=== PATIENT | female | born 1955 | race Caucasian/White ===

== ENCOUNTER 2017-11-21 20:03 | Emergency (ER) | payer BC ==
[2017-11-21 21:05] LABS: Urine Blood 1+ (NEG); Urine Glucose NEGATIVE (NEG); Urine Protein NEGATIVE (NEG); Urine pH 6.5 (5.0-7.0)
[2017-11-21] MEDS ORDERED: KETOROLAC 30 MG/ML INJ ONE (21:15)
[2017-11-21] MEDS ORDERED: NA CHLORIDE 0.9% 1,000 ML ONE ×2 (21:15→22:29)
[2017-11-21 21:33] LABS: Absolute Lymphocytes (CBC) 1.5 K/uL (0.7-4.9); Absolute Monocytes 0.6 K/uL (0.1-1.3); Absolute Neutrophil 6.4 K/uL (1.8-8.0); Basophils % 0.3 % (0-1.3); Eosinophils % 0.2 % (0-4.4); Lymphocytes % 17.6 % (15.3-44.8); MCH 31.2 pg (27.0-35.0); MCV 92.2 fL (80-100); MPV 8.1 fL (7.6-11.3); Monocytes % 7.1 % (3.3-12.3); RBC Red Blood Cell Count 4.66 M/uL (3.86-4.86)
--- NOTE | 2017-11-21 21:33 | RAD REPORT ---
EXAM DESCRIPTION: CT - Stone Protocol - 11/21/2017 9:20 pm CLINICAL HISTORY: Flank pain. FLANK PAIN COMPARISON: Lumbar Spine 3 Views dated 11/05/2017 TECHNIQUE: Axial images were obtained without oral or IV contrast. Lack of contrast limits solid org an and vascular assessment. The [id number] spans the entirety of the system partially obscuring uppermost abdomen and lung bases. Coronal reformatted images were obtained and reviewed. All CT scans are performed using dose optimization technique as appropriate and may include automated exposure control or mA/KV adjustment according to patient size. FINDINGS: Linear subsegmental atelectasis is present in the right lower lobe. Imaged portions of the liver and spleen show no suspicious findings on non-contrast imaging.Cholecyst ectomy. The pancreas and adrenal glands are normal. No pathologic lymphadenopathy in the abdomen or p edy. No urinary tract stones or obstructive uropathy. 13 mm cyst is seen in the inferior right kidney with subtle rim calcification noted. No bowel obstruction, free air, free fluid or abscess. Normal appendix noted. No significant bony abnormality. IMPRESSION: No urinary tract stones or obstructive uropathy.
[2017-11-21 21:45] LABS: Bilirubin Direct 0.1 mg/dL (0-0.2); Bilirubin Total 0.2 mg/dL (0.3-1.2); Protein, Total 7.1 g/dL (6.0-8.3)
[2017-11-21 21:52] LABS: Urine Bacteria <20 /HPF (<20); Urine Culture Reflex Order NOT NEEDED; Urine Mucus LIGHT /HPF (NONE SEEN); Urine RBC <5 /HPF (NONE SEEN)
--- NOTE | 2017-11-21 22:14 | ER ---
Nurse's Notes [facility] Name: Mallorie Mojica Age: 62 yrs Sex: Female : 1955 Arrival Date: 11/21/2017 Time: 20:25 Bed 24 Private MD: Diagnosis: Low back pain Presentation: 11/21 20:28 Presenting complaint: Patient states: pt c/o right sided flank pain, right sided CVA tl3 tenderness present, no urinary complaints, pain is intermittent in nature, has had a hx of two falls within th elast two weeks. Transition of care: patient was not received from another setting of care. Onset of symptoms was November 19, 2017. Risk Assessment: Do you want to hurt yourself or someone else? Patient reports no desire to harm self or others. Initial Sepsis Screen: Does the patient meet any 2 criteria? No. Patient's initial sepsis screen is negative. Does the patient have a suspected source of infection? No. Patient's initial sepsis screen is negative. Care prior to arrival: None. 20:28 Method Of Arrival: Ambulatory tl3 20:28 Acuity: AYSHA 3 tl3 Triage Assessment: 20:33 General: Appears in no apparent distress. comfortable, well groomed, well developed, tl3 well nourished, Behavior is calm, cooperative, appropriate for age. Pain: Complains of pain in right flank Pain currently is 7 out of 10 on a pain scale. Historical: - Allergies: 20:33 No Known Allergies; tl3 - Home Meds: 20:33 Micardis 20 mg Oral tab [Active]; Crestor 5 mg oral tab [Active]; levothyroxine 25 mcg tl3 tab 1 tab once daily [Active]; metoprolol tartrate 12.5 mg Oral tab once daily [Active]; omeprazole 40 mg oral cpDR [Active]; aspirin 81 mg Oral chew [Active]; - Immunization history:: Adult Immunizations up to date. - Social history:: Smoking status: Patient/guardian denies using tobacco, never smoked. - Ebola Screening: : Patient denies travel to an Ebola-affected area in the 21 days before illness onset No symptoms or risks identified at this time. Screenin:31 Abuse screen: Denies threats or abuse. Nutritional screening: No deficits noted. mb3 Tuberculosis screening: No symptoms or risk factors identified. Fall Risk None identified. Assessment: 20:45 General: Appears distressed, uncomfortable, well groomed, Behavior is calm, mb3 cooperative, appropriate for age. Pain: Complains of pain in right mid back and right low back Pain radiates to right lower quadrant. Neuro: No deficits noted. Cardiovascular: No deficits noted. Respiratory: No deficits noted. Airway is patent Respiratory effort is even, unlabored, Respiratory pattern is regular, symmetrical, Breath sounds are clear bilaterally. GI: Abdomen is flat, Bowel sounds present X 4 quads. Abd is soft and non tender. : No signs and/or symptoms were reported regarding the genitourinary system. Vital Signs: 20:33 BP 136 / 90; Pulse 71; Resp 16; Temp 97.8; Pulse Ox 98% ; Weight 78.02 kg; Height 5 ft. tl3 6 in. (167.64 cm); 22:28 BP 128 / 76; Pulse 63; Resp 18; Pulse Ox 98% on R/A; mb3 11/22 00:03 BP 115 / 63; Pulse 66; Resp 16; Pulse Ox 97% on R/A; mb3 11/21 20:33 Body Mass Index 27.76 (78.02 kg, 167.64 cm) tl3 ED Course: 11/21 20:25 Patient arrived in ED. es 20:31 Triage completed. tl3 20:33 Arm band placed on right wrist. tl3 20:56 Brandon Medina PA is PHCP. cp 20:56 Sukumar Rider MD is Attending Physician. cp 21:11 Laron Alfonso, SHAILA is Primary Nurse. mb3 21:[address] completed. Patient moved to CT via wheelchair. Patient moved [facility] from [facility] CT. 21:19 CT Stone Protocol In Process Unspecified. EDMS 22:30 Inserted saline lock: 22 gauge in left antecubital area, using aseptic technique. Blood mb3 collected. 22:31 Patient has correct armband on for positive identification. Bed in low position. Call mb3 light in reach. Side rails up X 1. Pulse ox on. NIBP on. 22:31 No provider procedures requiring assistance completed. mb3 11/22 00:03 IV discontinued, intact, bleeding controlled, No redness/swelling at site. Pressure mb3 dressing applied. Administered Medications: 11/21 21:15 Drug: TORadol 30 mg Route: IVP; Site: left antecubital; mb3 11/22 00:00 Follow up: Response: No adverse reaction mb3 11/21 21:20 Drug: NS 0.9% 1000 ml Route: IV; Rate: 1 bolus; Site: left antecubital; mb3 11/22 00:01 Follow up: Response: No adverse reaction; IV Status: Completed infusion; IV Intake: mb3 1000ml 11/21 22:28 Drug: NS 0.9% 1000 ml Route: IV; Rate: 1 bolus; Site: right antecubital; mb3 11/22 00:01 Follow up: Response: No adverse reaction; IV Status: Completed infusion; IV Intake: mb3 1000ml 11/21 23:15 Drug: [place] 5 mg-325 mg 1 tabs Route: PO; mb3 11/22 00:03 Follow up: Response: No adverse reaction; Pain is decreased mb3 Intake: 00:01 IV: 1000ml; Total: 1000ml. mb3 00:01 IV: 1000ml; Total: 2000ml. mb3 Outcome: 11/21 22:14 Discharge ordered by MD. kim 11/22 00:04 Discharged to home ambulatory, with family. mb3 Condition: stable Discharge instructions given to patient, family, Instructed on discharge instructions, follow up and referral plans. medication usage, Demonstrated understanding of instructions, follow-up care, medications, Prescriptions given X 2. 00:05 Patient left the ED. mb3 Signatures: Dispatcher [employer] Renée Riggs Crystal cw1 Brandon Medina PA PA cp Lowrey, Tammy, RN RN tl3 Laron Alfonso RN RN mb3
--- NOTE | 2017-11-21 22:14 | EDPHYS ---
Physician Documentation [facility] Name: Mallorie Mojica Age: 62 yrs Sex: Female : 1955 Arrival Date: 11/21/2017 Time: 20:25 Bed 24 Private MD: ED Physician Sukumar Rider HPI: 11/21 21:03 This 62 yrs old Female presents to ER via Ambulatory with complaints of Flank cp Pain. 21:03 The patient complains of pain in the right mid back. The pain radiates to the right cp lower abdomen. Onset: The symptoms/episode began/occurred 2 day(s) ago. 21:03 Associated signs and symptoms: Pertinent negatives: diarrhea, dizziness, dysuria, cp fever, headache, hematuria, pain radiating to the lower extremities, vomiting. 21:03 Severity of pain: in the emergency department the pain is unchanged despite home cp interventions. Historical: - Allergies: 20:33 No Known Allergies; tl3 - Home Meds: 20:33 Micardis 20 mg Oral tab [Active]; Crestor 5 mg oral tab [Active]; levothyroxine 25 mcg tl3 tab 1 tab once daily [Active]; metoprolol tartrate 12.5 mg Oral tab once daily [Active]; omeprazole 40 mg oral cpDR [Active]; aspirin 81 mg Oral chew [Active]; - Immunization history:: Adult Immunizations up to date. - Social history:: Smoking status: Patient/guardian denies using tobacco, never smoked. - Ebola Screening: : Patient denies travel to an Ebola-affected area in the 21 days before illness onset No symptoms or risks identified at this time. ROS: 21:08 Eyes: Negative for injury, pain, redness, and discharge. cp 21:08 Constitutional: Negative for body aches, chills, fever, poor PO intake. 21:08 ENT: Negative for drainage from ear(s), ear pain, sore throat, difficulty swallowing, cp difficulty handling secretions. 21:08 Cardiovascular: Negative for chest pain, edema, palpitations. 21:08 Respiratory: Negative for cough, shortness of breath, wheezing. 21:08 Abdomen/GI: Positive for abdominal pain, Negative for vomiting, diarrhea, constipation, anorexia, dysphagia. 21:08 Back: Positive for flank pain, on the right. 21:08 MS/extremity: Negative for injury or acute deformity, decreased range of motion, pain, cp paresthesias. 21:08 Skin: Negative for cellulitis, rash. 21:08 Neuro: Negative for altered mental status, dizziness, headache, weakness. 21:08 All other systems are negative. Exam: 21:13 Head/Face: Normocephalic, atraumatic. Eyes: Pupils equal round and reactive to light, cp extra-ocular motions intact. Lids and lashes normal. Conjunctiva and sclera are non-icteric and not injected. Cornea within normal limits. Periorbital areas with no swelling, redness, or edema. ENT: Nares patent. No nasal discharge, no septal abnormalities noted. Tympanic membranes are normal and external auditory canals are clear. Oropharynx with no redness, swelling, or masses, exudates, or evidence of obstruction, uvula midline. Mucous membranes moist. Neck: Trachea midline, no thyromegaly or masses palpated, and no cervical lymphadenopathy. Supple, full range of motion without nuchal rigidity, or vertebral point tenderness. No Meningismus. 21:13 Constitutional: The patient appears in no acute distress, alert, awake, non-diaphoretic, non-toxic, well developed, well nourished. 21:13 Chest/axilla: Inspection: normal, Palpation: is normal, no crepitus, no tenderness. cp 21:13 Cardiovascular: Rate: normal, Rhythm: regular, Heart sounds: murmur, not appreciated, cp rub, not appreciated, gallop, not appreciated, Edema: is not appreciated, JVD: is not appreciated. 21:13 Respiratory: the patient does not display signs of respiratory distress, Respirations: normal, no use of accessory muscles, no retractions, no splinting, no tachypnea, labored breathing, is not present, Breath sounds: are clear throughout, no decreased breath sounds, no stridor, no wheezing. 21:13 Abdomen/GI: Inspection: abdomen appears normal, Bowel sounds: active, all quadrants, Palpation: soft, in all quadrants, mild abdominal tenderness, in the right lower quadrant, rebound tenderness, is not appreciated, involuntary guarding, is not appreciated. 21:13 Back: ROM is painful, CVA tenderness, that is moderate, is noted on the right, vertebral tenderness, is not appreciated. 21:13 Skin: cellulitis, that is minimal, no rash present. 21:13 Neuro: Orientation: to person, place \T\ time. Mentation: lucid, able to follow commands, Cerebellar function: is grossly normal, Motor: moves all fours, strength is normal, Sensation: is normal. Vital Signs: 20:33 BP 136 / 90; Pulse 71; Resp 16; Temp 97.8; Pulse Ox 98% ; Weight 78.02 kg; Height 5 ft. tl3 6 in. (167.64 cm); 22:28 BP 128 / 76; Pulse 63; Resp 18; Pulse Ox 98% on R/A; mb3 11/22 00:03 BP 115 / 63; Pulse 66; Resp 16; Pulse Ox 97% on R/A; mb3 11/21 20:33 Body Mass Index 27.76 (78.02 kg, 167.64 cm) tl3 MDM: 11/21 20:56 Patient medically screened. cp 22:10 Data reviewed: vital signs, nurses notes, lab test result(s), radiologic studies, CT cp scan. 22:11 ED course: VSS. Discussed finding of renal cyst and renal insufficiency. Will discharge cp to home for continued monitoring and recommend f/u with primary physician for recheck next 2-3 days. 11/21 20:50 Order name: Urine Dipstick--Ancillary (enter results); Complete Time: 21:06 11/21 21:07 Interpretation: Normal except: UBLD 1+. 11/21 21:04 Order name: Amylase, Serum; Complete Time: 21:56 11/21 21:04 Order name: Basic Metabolic Panel; Complete Time: 21:56 11/21 21:57 Interpretation: Normal except: BUN 22; CRE 1.10; GFR 50. 11/21 21:04 Order name: CBC with Diff; Complete Time: 21:37 11/21 21:37 Interpretation: Normal except: MARIO% 74.8. 11/21 21:04 Order name: Creatinine for Radiology; Complete Time: 21:40 11/21 21:40 Interpretation: Reviewed. 11/21 21:04 Order name: Hepatic Function; Complete Time: 21:56 11/21 21:57 Interpretation: Normal except: BILIT 0.2. 11/21 21:04 Order name: Lipase; Complete Time: 21:56 11/21 21:04 Order name: Urine Microscopic Only; Complete Time: 21:56 cp 11/21 21:04 Order name: IV Saline Lock; Complete Time: 21:34 cp 11/21 21:08 Order name: CT Stone Protocol; Complete Time: 21:37 cp 11/21 21:04 Order name: Labs collected and sent; Complete Time: 21:34 cp 11/21 21:04 Order name: Urine Dipstick-Ancillary (obtain specimen); Complete Time: 21:35 cp Administered Medications: 21:15 Drug: TORadol 30 mg Route: IVP; Site: left antecubital; mb3 11/22 00:00 Follow up: Response: No adverse reaction mb3 11/21 21:20 Drug: NS 0.9% 1000 ml Route: IV; Rate: 1 bolus; Site: left antecubital; mb3 11/22 00:01 Follow up: Response: No adverse reaction; IV Status: Completed infusion; IV Intake: mb3 1000ml 11/21 22:28 Drug: NS 0.9% 1000 ml Route: IV; Rate: 1 bolus; Site: right antecubital; mb3 11/22 00:01 Follow up: Response: No adverse reaction; IV Status: Completed infusion; IV Intake: mb3 1000ml 11/21 23:15 Drug: [place] 5 mg-325 mg 1 tabs Route: PO; mb3 11/22 00:03 Follow up: Response: No adverse reaction; Pain is decreased mb3 Disposition: 01:22 Co-signature as Attending Physician, Sukumar Rider MD. pkl Disposition: 11/21/17 22:14 Discharged to Home. Impression: Low back pain. - Condition is Stable. - Discharge Instructions: Back Pain, Adult, Musculoskeletal Pain, Back Exercises, Opom-cp-[id number]. - Prescriptions for Cyclobenzaprine 10 mg Oral Tablet - take 1 tablet by ORAL route every 8 hours As needed; 20 tablet. Tramadol 50 mg Oral Tablet - take 1 tablet by ORAL route every 8 hours as needed; 12 tablet. - Medication Reconciliation Form, Thank You Letter, Antibiotic Education, Prescription Opioid Use form. - Follow up: Private Physician; When: 2 - 3 days; Reason: Recheck today's complaints. - Problem is new. - Symptoms have improved. Signatures: Dispatcher [facility] EDSukumar Tai MD MD pkl Brandon Medina PA PA cp Lowrey, Tammy, RN RN tl3 Laron lAfonso RN RN mb3 Corrections: (The following items were deleted from the chart) 00:05 11/21 22:14 11/21/2017 22:14 Discharged to Home. Impression: Low back pain. Condition mb3 is Stable. Forms are Medication Reconciliation Form, Thank You Letter, Antibiotic Education, Prescription Opioid Use. Follow up: Private Physician; When: 2 - 3 days; Reason: Recheck today's complaints. Problem is new. Symptoms have improved. cp
[2017-11-21] MEDS ORDERED: HYDROCODONE/APAP 5/325 MG TAB ONE (23:07)
== END 2017-11-22 00:05 | disposition home or self-care (01) ==
LOC: ER 20:03
DX: M54.5 Low back pain (principal); Z79.82 Long term (current) use of aspirin
CPT/HCPCS: 36415; 74176; 76377; 80048; 80076; 81003; 81015; 82150; 83690; 85025; 96361; 96374; 99284; J7030